=== PATIENT | female | born 1950 | race Caucasian/White ===

== ENCOUNTER → 2016-04-17 | Day surgery (SDC) | payer SELFPAY ==
[~2016-04-17] MED LIST: DEPAKOTE PO; ZESTRIL5 MG PO
--- NOTE | ~2016-04-17 | OR ---
Unit #: [id number] #: [id number] Patient: TOMMIE STERLING [id number] [address] [place], [place] [address] [id number] MR#: [id number] NAME: TOMMIE STERLING. ROOM: Date of Procedure: 04/17/2016 Admission Date: 04/17/2016 Surgeon: Carlos Callahan M.D. : 1950 Attending Physician: Carlos Callahan M.D. Primary Care Physician: Joe Daniels M.D. OPERATIVE REPORT PROCEDURES PERFORMED Colonoscopy with snare polypectomy, colonoscopy with submucosal injection, colonoscopy with biopsy, removal of polyps. INDICATIONS FOR PROCEDURE The patient with positive Cologuard test, undergoing colonoscopy for evaluation. MEDICATIONS Monitored anesthesia. POSTOPERATIVE FINDINGS 1. Polyp, transverse colon, 1.5 cm flat, was snared piecemeal and sent for histopathology. 2. Polyp, descending colon x3, snared and sent for histopathology. Largest polyp in transverse colon was tattooed also. 3. Cecal polyp x1, biopsy removed. 4. Rectal polyps x5, small, biopsy removed. PLAN Follow up on the pathology report. Repeat colonoscopy in 1 year. DESCRIPTION OF PROCEDURE The patient was explained of the procedure, risks, and benefits along with the risks and benefits of anesthesia. She was brought to the endoscopy room. Propofol anesthesia was given. Rectal exam was done, which was normal. Colonoscope was lubricated, passed up the rectum, advanced under direct vision all the way to the cecum. Cecum was identified by ileocecal valve and appendiceal orifice. At this point, I started to pull the scope out carefully looking. Various polyps were seen as described. I retroflexed in the rectum, small hemorrhoids seen. Gently, the scope was pulled out. She tolerated it well. No major complications were seen. Dictated by... Chata Ruth/nicholas TD: 04/27/2016 01:28 JOB #: [id number] CC: Memo Aldridge M.D. Unit #: [id number] #: [id number] Patient: TOMMIE STERLING OPERATIVE REPORT X Carlos Callahan MD PROCEDURE OPERATIVE NOTE
== END | disposition home or self-care (01) ==
LOC: COPS 07:34
DX: Z12.11 Encounter for screening for malignant neoplasm of colon (principal); Z12.12 Encounter for screening for malignant neoplasm of rectum; D12.0 Benign neoplasm of cecum; D12.3 Benign neoplasm of transverse colon; D12.4 Benign neoplasm of descending colon; K63.5 Polyp of colon; K62.1 Rectal polyp; K64.9 Unspecified hemorrhoids; I10 Essential (primary) hypertension; J44.9 Chronic obstructive pulmonary disease, unspecified; F17.210 Nicotine dependence, cigarettes, uncomplicated; Z98.51 Tubal ligation status
CPT/HCPCS: 88305; J2250